=== PATIENT | female | born 1950 | race Caucasian/White ===

== ENCOUNTER 2024-09-08 10:01 | Outpatient (CLI) | payer MEDICARE, SELFPAY ==
[2024-09-08 10:52] LABS: Basophils Absolute Auto 0.1 K/mm3 (0.0-0.1); Basophils Percent Auto 0.7 % (0.2-1.2); Eosinophils Absolute Auto 0.2 K/mm3 (0-0.3); Eosinophils Percent Auto 1.7 % (0-4.4); Hematocrit 44.9 % (37.0-47.0); Hemoglobin 14.6 g/dL (12.0-15.0); Immature Granulocyte Absolute 0.05 K/mm3 (0.00-0.031); Immature Granulocyte Percent A 0.5 % (0-0.5); Lymphocytes Absolute Auto 2.69 K/mm3 (0.9-3.2); Lymphocytes Percent Auto 25.4 % (18.3-44.2); Mean Corpuscular HGB Conc 32.5 g/dl (32-36); Mean Corpuscular Hemoglobin 31.6 pg (26-34); Mean Corpuscular Volume 97.2 fl (80-100); Mean Platelet Volume 9.8 fl (7.4-10.4); Monocytes Percent Auto 9.8 % (2.6-8.5); Neutrophils Absolute Auto 6.6 K/mm3 (1.3-6.7); Neutrophils Percent Auto 61.9 % (45.5-73.1); Platelet Count Result 250 k/mm3 (150-375); Red Blood Count 4.62 M/mm3 (4.2-5.4); Red Cell Distribution Width 12.4 % (11.5-14.5); White Blood Count 10.6 K/mm3 (4.5-10.0)
[2024-09-08 12:20] LABS: LDL Cholesterol Direct 38 mg/dL
[2024-09-08 12:27] LABS: Alanine Aminotransferase 37 U/L (6-35); Albumin Level 4.3 g/dL (3.5-5.1); Alkaline Phosphatase 119 U/L (38-126); Anion Gap 7 mmol/L (4-12); Aspartate Amino Transferase 30 U/L (14-36); Bilirubin,Total 0.5 mg/dL (0.2-1.3); Blood Urea Nitrogen 20 mg/dL (7-17); Carbon Dioxide 29 mmol/L (22-30); Chloride 101 mmol/L (98-107); Cholesterol 109 mg/dL (0-200); Estimated Glomerular Filt Rate > 60; Glucose 115 mg/dL (65-110); HDL Direct 53 mg/dL; Potassium 4.4 mmol/L (3.4-5.0); Sodium 137 mmol/L (137-145); Triglycerides 71 mg/dL (<150)
[2024-09-08 19:19] LABS: Hemoglobin A1C 6.1 % (<5.7)
== END 2024-09-08 10:02 | disposition home or self-care (01) ==
LOC: ANHLAB 10:04
PROVIDERS: PCP Nurse Practitioner Family; Visit Provider Nurse Practitioner Family
DX: R73.01 Impaired fasting glucose (principal); R73.03 Prediabetes; I10 Essential (primary) hypertension; Z76.89 Persons encountering health services in other specified circumstances; Z86.73 Personal history of transient ischemic attack (TIA), and cerebral infarction without residual deficits
CPT/HCPCS: 36415; 80053; 80061; 83036; 85025

== ENCOUNTER 2025-03-01 08:40 | Outpatient (CLI) | payer MEDICARE, SELFPAY ==
--- OUTSIDE RECORDS SUMMARY | 2025-03-01 08:52 | XMS_ITS | Referral Summary ---
Author Organization [facility] Address [address] [place] [address] Care Team Providers Care [employer] Name Role Phone Gregg Choudhary MD Primary Care Provider + [phone] Allergies Active Allergy Reactions Criticality Noted Date Comments Penicillin Rash Medium 12/17/2022 Sulfa (Sulfonamide Antibiotics) Rash Medium 11/25 Medications atorvastatin (LIPITOR) 80 mg tablet Take 1 tablet (80 mg total) by mouth daily Active aspirin 81 mg enteric coated tablet Take 1 tablet (81 mg total) by mouth daily Active atenoloL (TENORMIN) 100 mg tablet Take 1 tablet (100 mg total) by mouth daily Active losartan (COZAAR) 100 mg tablet Take 1 tablet (100 mg total) by mouth daily Active levETIRAcetam (KEPPRA) 500 mg tablet Take 1 tablet (500 mg total) by mouth 2 (two) times a day 180 tablet 3 12/17/2022 Active Active Problems Problem Noted Date Diagnosed Date Unspecified convulsions 12/17/2022 Old cerebrovascular accident (CVA) without late effect 12/17/2022 Social History Tobacco Use Types Packs/Day Years Used Date Smoking Tobacco: Never Tobacco Cessation:Counseling Given: Not Answered Personal Safety Answer Date Recorded Getting School Help Needed Not on file 10/26 Comments Unknown Sex and Gender Information Value Date Recorded Sex Assigned at Not on file Legal Sex Female 1:32 PM CDT Gender Identity Not on file Sexual Orientation Not on file Last Filed Vital Signs Vital Sign Reading Time Taken Comments Blood Pressure 112/70 03/11/2023 11:56 AM CDT Pulse 90 03/11/2023 11:56 AM CDT Temperature 36.3 C (97.3 F) 03/11/2023 11:56 AM CDT Respiratory Rate - - Oxygen Saturation 98% 12/17/2022 12:46 PM CDT Inhaled Oxygen Concentration - - Weight 65.3 kg (144 lb) 03/11/2023 11:56 AM CDT Height 160 cm (5' 3) 03/11/2023 11:56 AM CDT Body Mass Index 25.51 03/11/2023 11:56 AM CDT Plan of Treatment Not on file Insurance MEDICARE MEDICARE Care Teams [employer] Relationship Specialty Start Date End Date Gregg Choudhary MD PCP - General Internal Medicine 11/26/22
--- OUTSIDE RECORDS SUMMARY | 2025-03-01 08:52 | XMS_ITS | Clinical Summary ---
Author Organization [facility] Address [address] [place] [address] Care Team Providers Care Occupational Nurse Name Role Phone Gregg Choudhary MD Primary Care Provider + [phone] Allergies Active Allergy Reactions Criticality Noted Date [...] on file Sexual Orientation Not on file Obstetrics History Last Filed Vital Signs Vital Sign Reading [...] 03/11/2023 11:56 AM CDT Plan of Treatment Health Maintenance Due Date Last Done Comments Breast Cancer Screening-Mammogram 1951 Colon Cancer Screening-Colonoscopy 1950 Depression Screening 1951 Fall Risk Assessment 1950 Hepatitis C Screening 1951 Osteoporosis Screening-Bone Density Scan 1951 DTaP/Tdap/Td Vaccine (1 - Tdap) 1962 Hepatitis B Screening 1969 Pneumococcal vaccine 65+ (1 of 1 - PCV) 2001 Zoster Vaccine (1 of 2) 2001 Well Visit 65+ 02/25/2016 Influenza Vaccine (#1) 2025 Insurance MEDICARE MEDICARE Care Teams Occupational Nurse Relationship Specialty Start Date End Date Gregg Choudhary MD PCP - General Internal Medicine 11/26/22
--- OUTSIDE RECORDS SUMMARY | 2025-03-01 08:52 | XMS_ITS | Encounter Summary ---
Author Organization [facility] Health Address [address] [place] [address] Care Team Providers Care Ore Miner Blasting Name Role Phone Unavailable Primary Care Provider Unavailabl e Prior Encounters Date Type Department Care Team Description 09/14/2019 Converted 13x Documents [facility] [address] [place] [address] <No scans attached> 09/14/2019 Converted CPS Chart Documents [facility] [address] [place] [address] <No scans attached> Plan of Treatment Not on file Procedures Procedure Name Priority Date/Time Associated Diagnosis Comments PROPHYLAXIS - ADULT Routine 05/18/2008 1 2:[address] [facility] OFFICE VISIT FOR OBSERVATION (DURING REGULARLY SCHEDULED HOURS) - NO OTHER SERVICES PERFORMED Routine 05/18/2008 12:[address] [facility] OFFICE VISIT FOR OBSERVATION (DURING REGULARLY SCHEDULED HOURS) - NO OTHER SERVICES PERFORMED Routine 01/14/2008 12:[address] [facility] PERIO MAINTENANCE Routine 01/13/2008 12: [address] [facility] PERIODIC ORAL EVALUATION - ESTABLISHED PATIENT Routine 01/13/2008 12:[address] [facility] DENTAL PLAN ENROLL 1 Routine 09/02/2007 1:00 AM MST 29 DO [place] 2 SURFACE Routine 09/01/19 08 1:00 AM MST 4 DO [place] 2 SURFACE Routine 8 1:00 AM MST 3 MO AM[place]AM 2 SURFACE Routine 8 1:00 AM MST 20 O [place] 1 SURFACE Routine 8 1:00 AM MST 19 O [place] 1 SURFACE Routine 8 1:00 AM MST 15 O [place] 1 SURFACE Routine 8 1:00 AM MST 14 O [place] 1 SURFACE Routine 8 1:00 AM MST 2 O [place] 1 SURFACE Routine 09/01/2007 1:[address] [facility] PROPHYLAXIS - ADULT Routine 09/01/2007 1 :[address] [facility] COMPREHENSIVE ORAL EVALUATION - NEW OR ESTABLISHED PATIENT Routine 09/01/2007 1:[address] [facility] INTRAORAL - COMPREHENSIVE SERIES OF RADIOGRAPHIC IMAGES Routine 09/01/2007 1:[address] [facility] INTRAORAL PHOTO Routine 09/01/2007 1:[address] [facility] INTRAORAL PHOTO Routine 09/01/2007 1:[address] [facility] INTRAORAL PHOTO Routine 09/01/2007 1:[address] [facility] INTRAORAL PHOTO Routine 09/01/2007 1:[address] [facility] 30 MO COMPOSITE FILLING Routine 09/01/19 08 1:[address] [facility] 18 O COMPOSITE FILLING Routine 8 1:[address] [facility] 13 O COMPOSITE FILLING Routine 8 1:[address] [facility] Visit Diagnoses Not on file
--- OUTSIDE RECORDS SUMMARY | 2025-03-01 08:52 | XMS_ITS | Clinical Summary ---
Author Organization [facility] Health Address [address] [place] [address] Care Team Providers Care Customer Assistance Associate Name Role Phone Unavailable Primary Care Provider Unavailabl e Social History Tobacco Use Types Packs/Day Years Used Date Smoking Tobacco: Never Assessed Comments Unknown Sex and Gender Information Value Date Recorded Sex Assigned at Not on file Legal Sex Female 11:41 PM PST Gender Identity Not on file Sexual Orientation Not on file Plan of Treatment Not on file
[2025-03-01 09:06] LABS: Hematocrit 42.9 % (37.0-47.0); Hemoglobin 13.9 g/dL (12.0-15.0); Immature Granulocyte Percent A 0.4 % (0-0.5); Lymphocytes Absolute Auto 2.79 K/mm3 (0.9-3.2); Mean Corpuscular HGB Conc 32.4 g/dl (32-36); Mean Corpuscular Hemoglobin 31.0 pg (26-34); Mean Corpuscular Volume 95.5 fl (80-100); Nucleated Red Blood Cells Absolute Auto 0.000 K/mm3 (0.0-0.012); Nucleated Red Blood Cells Perc 0.0 % (0.0-0.2); Platelet Count Result 194 k/mm3 (150-375); Red Blood Count 4.49 M/mm3 (4.2-5.4); White Blood Count 7.4 K/mm3 (4.5-10.0)
[2025-03-01 09:19] LABS: Alanine Aminotransferase 33 U/L (6-35); Albumin Level 4.0 g/dL (3.5-5.1); Alkaline Phosphatase 106 U/L (38-126); Anion Gap 8 mmol/L (4-12); Aspartate Amino Transferase 32 U/L (14-36); Bilirubin,Total 0.5 mg/dL (0.2-1.3); Blood Urea Nitrogen 12 mg/dL (7-17); Calcium 10.0 mg/dL (8.4-10.2); Carbon Dioxide 27 mmol/L (22-30); Chloride 103 mmol/L (98-107); Cholesterol 99 mg/dL (0-200); Estimated Glomerular Filt Rate > 60; Glucose 117 mg/dL (65-110); HDL Direct 51 mg/dL; Potassium 4.4 mmol/L (3.4-5.0); Sodium 138 mmol/L (137-145); Total Protein 7.0 g/dL (6.3-8.2); Triglycerides 79 mg/dL (<150)
[2025-03-01 09:30] LABS: Hemoglobin A1C 6.0 % (<5.7)
== END 2025-03-01 08:41 | disposition home or self-care (01) ==
PROVIDERS: PCP Nurse Practitioner Family; Visit Provider Nurse Practitioner Family
DX: R73.03 Prediabetes (principal); I10 Essential (primary) hypertension; Z86.73 Personal history of transient ischemic attack (TIA), and cerebral infarction without residual deficits; J45.909 Unspecified asthma, uncomplicated
CPT/HCPCS: 36415; 80053; 80061; 83036; 85025

== ENCOUNTER 2025-08-16 09:05 | Outpatient (CLI) | payer MEDICARE, SELFPAY ==
--- OUTSIDE RECORDS SUMMARY | 2025-08-16 09:52 | XMS_ITS | Encounter Summary ---
Author Organization [facility] Health Address [address] [place] [address] Care Team Providers Care Air Quality Engineer Name Role Phone Unavailable Primary Care Provider Unavailabl e Prior Encounters Date Type Department Care Team Description 09/14/2019 Converted 13x Documents [facility] [address] [place] [address] <No scans attached> 09/14/2019 Converted CPS Chart Documents [facility] [address] [place] [address] <No scans attached> Plan of Treatment Not on file Procedures Procedure Name Priority Date/Time Associated Diagnosis Comments PROPHYLAXIS - ADULT Routine 05/18/2008 1 2:00 AM [facility] OFFICE VISIT FOR OBSERVATION (DURING REGULARLY SCHEDULED HOURS) - NO OTHER SERVICES PERFORMED Routine 05/18/2008 12:00 AM [facility] OFFICE VISIT FOR OBSERVATION (DURING REGULARLY SCHEDULED HOURS) - NO OTHER SERVICES PERFORMED Routine 01/14/2008 12:00 AM [facility] PERIO MAINTENANCE Routine 01/13/2008 12: 00 AM [facility] PERIODIC ORAL EVALUATION - ESTABLISHED PATIENT Routine 01/13/2008 12:00 AM [facility] DENTAL PLAN ENROLL 1 Routine [...] [place] 1 SURFACE Routine 09/01/2007 1:00 AM [facility] PROPHYLAXIS - ADULT Routine 09/01/2007 1 :00 AM [facility] COMPREHENSIVE ORAL EVALUATION - NEW OR ESTABLISHED PATIENT Routine 09/01/2007 1:00 AM [facility] INTRAORAL - COMPREHENSIVE SERIES OF RADIOGRAPHIC IMAGES Routine 09/01/2007 1:00 AM [facility] INTRAORAL PHOTO Routine 09/01/2007 1:00 AM [facility] INTRAORAL PHOTO Routine 09/01/2007 1:00 AM [facility] INTRAORAL PHOTO Routine 09/01/2007 1:00 AM [facility] INTRAORAL PHOTO Routine 09/01/2007 1:00 AM [facility] 30 MO COMPOSITE FILLING Routine 09/01/19 08 1:00 AM [facility] 18 O COMPOSITE FILLING Routine 8 1:00 AM [facility] 13 O COMPOSITE FILLING Routine 8 1:00 AM [facility] Visit Diagnoses Not on file
--- OUTSIDE RECORDS SUMMARY | 2025-08-16 09:52 | XMS_ITS | Clinical Summary ---
Author Organization [facility] Address [address] [place] [address] Care Team Providers Care Watch Supervisor Name Role Phone Gregg Choudhary MD Primary Care Provider + [phone] Allergies Active Allergy Reactions Criticality Noted Date [...] (#1) 2025 Insurance MEDICARE MEDICARE Care Teams Watch Supervisor Relationship Specialty Start Date End Date Gregg Choudhary MD PCP - General Internal Medicine 11/26/22
--- OUTSIDE RECORDS SUMMARY | 2025-08-16 09:52 | XMS_ITS | Clinical Summary ---
Author Organization [facility] Health Address [address] [place] [address] Care Team Providers Care Flowers Salesperson Name Role Phone Unavailable Primary Care Provider [...]
[2025-08-16 09:58] LABS: Hemoglobin A1C 6.0 % (<5.7)
[2025-08-16 10:04] LABS: Alanine Aminotransferase 32 U/L (6-35); Albumin Level 4.0 g/dL (3.5-5.1); Alkaline Phosphatase 111 U/L (38-126); Anion Gap 7 mmol/L (4-12); Aspartate Amino Transferase 28 U/L (14-36); Bilirubin,Total 0.7 mg/dL (0.2-1.3); Blood Urea Nitrogen 21 mg/dL (7-17); Calcium 10.0 mg/dL (8.4-10.2); Carbon Dioxide 27 mmol/L (22-30); Chloride 102 mmol/L (98-107); Estimated Glomerular Filt Rate > 60; Glucose 112 mg/dL (65-110); Potassium 4.3 mmol/L (3.4-5.0); Sodium 136 mmol/L (137-145); Total Protein 7.0 g/dL (6.3-8.2)
== END 2025-08-16 09:06 | disposition home or self-care (01) ==
PROVIDERS: PCP Nurse Practitioner Family; Visit Provider Nurse Practitioner Family
DX: R73.03 Prediabetes (principal); I10 Essential (primary) hypertension; Z86.73 Personal history of transient ischemic attack (TIA), and cerebral infarction without residual deficits
CPT/HCPCS: 36415; 80053; 83036